=== PATIENT | male | born 1945 | race Caucasian/White ===

== ENCOUNTER 2021-03-27 05:13 | Day surgery (SDC) | payer OTHER ==
[2021-03-27] MEDS ORDERED: Midazolam 1 MG/ML 2 ML SDV IV ONE ×4 (05:14→06:43)
[2021-03-27] MEDS ORDERED: fentaNYL 100 MCG/2 ML SDV IV ONE ×3 (05:14→06:37)
[2021-03-27] MEDS ORDERED: Midazolam 1 MG/ML 2 ML SDV ONE (05:35)
[2021-03-27] MEDS ORDERED: fentaNYL 100 MCG/2 ML SDV ONE (05:36)
[2021-03-27] MEDS ORDERED: Dextrose 5%-0.45% NaCl 1,000 ML IV SCH (06:00)
[2021-03-27] MEDS ORDERED: Sodium Chloride 0.9% 10 ML Syringe FLUSH PRN (06:00)
[2021-03-27] MEDS ORDERED: Sodium Chloride 0.9% 10 ML Syringe FLUSH SCH (06:00)
--- NOTE | 2021-03-27 07:39 | OR ---
DATE: 03/27/2021 PROCEDURE: Total colonoscopy, NBI, and cold snare polypectomy. INSTRUMENT USED: [id number]-HQ190 Olympus video colonoscope. PREMEDICATIONS: Fentanyl 100 mcg intravenous, Versed 2.5 mg intravenous. Nasal O2 cannula. The procedure was done under pulse oximetry, BP recording, and pvc monitor. INDICATION: The patient with positive FIT. Colonoscopic examination is done for detection of any polypoid lesions and removal, endoscopic hemostasis therapy if needed. DESCRIPTION OF PROCEDURE: Initial rectal exam was unremarkable. Rigid anoscopy showed small internal hemorrhoids without bleeding from them. The colonoscope was passed with ease up to the ileocecal area. Photographs were taken of the normal-appearing cecum, identified by double bulged ileocecal folds. No bleeding was noted from any of the visualized areas at the commencement of the examination. The bowel preparation was found to be adequate, [place] scale 2 in right and transverse colon, 3 in left colon. Total score 7. No stricture. No vascular ectasia. No large isolated ulcerations seen. No evidence of diffuse inflammatory bowel disease in the form of friability, contact bleeding, or ulcerations. Probing the proximal sides of folds and flexures using adequate distention and clearing up the stool material, withdrawal of the scope was made. Second look was done at the right colon. In the hepatic flexure area, diminutive benign-appearing polyp was noted, NBI views were obtained, cold snare polypectomy was done, the tissue was retrieved and sent for histopathology. No bleeding was noted from any of the visualized areas at the completion of examination. IMPRESSION: 1. Internal hemorrhoids. 2. Diminutive hepatic flexure polyp. The patient tolerated the procedure well. [facility] /[id number]
--- NOTE | 2021-03-27 08:29 | LETTER ---
03/27/2021 [facility] [address] [place] [id number] RE: PHYLICIA DAILY : 1945 Dear Ms. Lynn: Mr. Phylicia Daily had colonoscopic examination done this morning, and he tolerated the procedure well. I herewith send a copy of the endoscopy note and photographs for your review. Thank you. Sincerely, [facility] /[id number]
== END 2021-03-27 09:11 | disposition home or self-care (01) ==
LOC: DL.ENDO 05:13
PROVIDERS: ATTEND Internal Medicine Gastroenterology
DX: K63.5 Polyp of colon (principal); K64.8 Other hemorrhoids; E66.09 Other obesity due to excess calories; I25.10 Atherosclerotic heart disease of native coronary artery without angina pectoris; I48.91 Unspecified atrial fibrillation; E11.9 Type 2 diabetes mellitus without complications; I10 Essential (primary) hypertension; E78.5 Hyperlipidemia, unspecified; K21.9 Gastro-esophageal reflux disease without esophagitis; K43.9 Ventral hernia without obstruction or gangrene; Z01.812 Encounter for preprocedural laboratory examination; Z20.822 Contact with and (suspected) exposure to COVID-19
CPT/HCPCS: 45385; 87635; J2250; J3010; J7042; U0002

== ENCOUNTER 2022-05-25 14:38 | Inpatient (IN) | payer MEDICARE, OTHER ==
[2022-05-25] MEDS ORDERED: Furosemide 100 MG/10 ML SDV IVPUSH ONE (15:06)
[2022-05-25 15:39] LABS: ANION GAP 13.5 mEq/L (7-13)
[2022-05-25] MEDS ORDERED: Levofloxacin/Dextrose 5%-Water 750 MG in Premix Bag 1 BAG IV ONE (16:48)
[2022-05-25 16:51] LABS: CORONAVIRUS COVID-19 NAA NEGATIVE (NEGATIVE); RESPIRATORY SYNCYTIAL VIR NAA NEGATIVE (NEGATIVE)
[2022-05-25] MEDS ORDERED: Bisacodyl 5 MG Tab PO PRN (19:12)
[2022-05-25] MEDS ORDERED: Magnesium Hydroxide 400 MG/5 ML Susp 30 ML Cup PO PRN (19:12)
[2022-05-25] MEDS ORDERED: Polyethylene Glycol 3350 Powder 17 GM Packet PO PRN (19:12)
[2022-05-25] MEDS ORDERED: HYDROmorphone 0.5 MG/0.5 ML Syringe IVPUSH PRN (19:12)
[2022-05-25] MEDS ORDERED: Acetaminophen/HYDROcodone 325-5 MG Tab PO PRN (19:12)
[2022-05-25] MEDS ORDERED: Acetaminophen 325 MG Tab PO PRN (19:12)
[2022-05-25] MEDS ORDERED: Diclofenac Sodium 1% Gel 100 GM Tube TOP PRN (19:19)
[2022-05-25] MEDS ORDERED: Metoprolol Tartrate 5 MG/5 ML SDV IVPUSH PRN (19:23)
[2022-05-25] MEDS ORDERED: hydrALAZINE 20 MG/ML SDV IVPUSH PRN (19:23)
[2022-05-25] MEDS ORDERED: guaiFENesin/Dextromethorphan 100-10 MG/5 ML Soln 5 ML Cup PO PRN (19:25)
[2022-05-25] MEDS ORDERED: Glucagon,Human Recombinant 1 MG Vial IM PRN (19:26)
[2022-05-25] MEDS ORDERED: 50% Dextrose in Water 50 ML Syringe IVPUSH PRN (19:26)
[2022-05-25] MEDS ORDERED: Hydrochlorothiazide 25 MG Tab PO SCH (21:00)
[2022-05-25] MEDS: Saccharomyces Boulardii (Probiotic) 250 MG Cap PO SCH (21:29)
[2022-05-25] MEDS: Hydrochlorothiazide 25 MG Tab PO SCH (21:29)
[2022-05-25] MEDS: Metoprolol Tartrate 50 MG Tab PO SCH (21:29)
[2022-05-25] MEDS: Lisinopril 20 MG Tab PO SCH (21:30)
[2022-05-25] MEDS: Melatonin 3 MG Tab PO PRN (21:30)
[2022-05-25] MEDS: Sodium Chloride 0.9% 10 ML Syringe FLUSH SCH (21:34)
[2022-05-25] MEDS ORDERED: HYDRALAZINE 10 MG PO SCH (23:15)
[2022-05-25] MEDS: Piperacillin/Tazobactam 3.375 GM in Sodium Chloride 0.9% 100 ML IV SCH (23:46)
[2022-05-25] MEDS: Morphine 2 MG/ML SYRINGE IVPUSH PRN (23:47)
[2022-05-25] MEDS: Sodium Chloride 0.9% 10 ML Syringe FLUSH PRN (23:47)
[2022-05-26] MEDS: HYDRALAZINE 10 MG PO SCH ×4 (00:16→23:09)
[2022-05-26] MEDS: Morphine 2 MG/ML SYRINGE IVPUSH PRN ×4 (05:22→16:30)
[2022-05-26] MEDS: Piperacillin/Tazobactam 3.375 GM in Sodium Chloride 0.9% 100 ML IV SCH ×3 (05:27→19:21)
[2022-05-26 06:47] LABS: ANION GAP 10.3 mEq/L (7-13)
[2022-05-26] MEDS: Insulin Lispro 100 Units/ML 3 ML Vial SUBCUT SCH ×2 (08:17→19:08)
[2022-05-26] MEDS: Sodium Chloride 0.9% 10 ML Syringe FLUSH SCH ×3 (08:18→21:15)
[2022-05-26] MEDS: glipiZIDE 5 MG Tab PO SCH (08:19)
[2022-05-26] MEDS: Hydrochlorothiazide 25 MG Tab PO SCH ×2 (08:19→21:15)
[2022-05-26] MEDS: Metoprolol Tartrate 50 MG Tab PO SCH ×2 (08:19→23:09)
[2022-05-26] MEDS: Rosuvastatin 10 MG Tab PO SCH (08:19)
[2022-05-26] MEDS: Saccharomyces Boulardii (Probiotic) 250 MG Cap PO SCH ×2 (08:19→21:14)
[2022-05-26] MEDS: Lisinopril 20 MG Tab PO SCH ×2 (08:20→21:14)
[2022-05-26] MEDS: Isosorbide Mononitrate 60 MG Tab.ER PO SCH (08:20)
[2022-05-26] MEDS: Aspirin 81 MG Tab.EC PO SCH (08:20)
[2022-05-26] MEDS: amLODIPine 5 MG Tab PO SCH (08:20)
[2022-05-26] MEDS: Cholecalciferol (Vitamin D3) 25 MCG Tab PO SCH (08:21)
[2022-05-26] MEDS ORDERED: Magnesium Sulfate/Water 2 GM in Premix Bag 1 BAG IV ONE (08:22)
[2022-05-26] MEDS: Ondansetron 4 MG/2 ML SDV IVPUSH PRN (08:58)
[2022-05-26] MEDS ORDERED: Hydrochlorothiazide 25 MG Tab PO SCH (09:00)
[2022-05-26] MEDS ORDERED: Potassium Chloride 10 MEQ Tab.ER PO ONE ×3 (11:00→19:30)
[2022-05-26] MEDS: Albuterol/Ipratropium 3.0-0.5 MG/3 ML Neb Soln NEB PRN (16:32)
[2022-05-26 17:02] LABS: O2 DELIVERY DEVICE NASAL CANNULA
[2022-05-26 17:03] LABS: ALLEN TEST POSITIVE
[2022-05-26 17:04] LABS: PCO2 ARTERIAL 84 mmHg (35-45); PO2 ARTERIAL 76 mmHg (70-100)
[2022-05-26 17:05] LABS: BASE EXCESS ARTERIAL 9 mmol/L ((-2)-(+3)); BICARBONATE,ARTERIAL 36.1 mmol/L (22-26); O2 SATURATION ARTERIAL 91 % (95-100)
[2022-05-26] MEDS ORDERED: Naloxone 2 MG/2 ML Syringe IVPUSH ONE (17:38)
[2022-05-26] MEDS ORDERED: Morphine 2 MG/ML SYRINGE IVPUSH PRN (18:53)
[2022-05-26 19:06] LABS: ANION GAP 15.8 mEq/L (7-13)
[2022-05-26] MEDS ORDERED: Temazepam 15 MG Cap PO ONE (21:00)
[2022-05-26] MEDS ORDERED: diphenhydrAMINE 50 MG/ML SDV IVPUSH ONE (21:00)
[2022-05-26] MEDS ORDERED: Sodium Chloride 0.9% 500 ML IV SCH (22:00)
[2022-05-26] MEDS ORDERED: Sodium Chloride 0.9% 1,000 ML IV SCH (22:00)
[2022-05-26] MEDS: Sodium Chloride 0.9% 10 ML Syringe FLUSH PRN (23:01)
[2022-05-27] MEDS: Piperacillin/Tazobactam 3.375 GM in Sodium Chloride 0.9% 100 ML IV SCH ×5 (00:33→23:28)
[2022-05-27] MEDS: HYDRALAZINE 10 MG PO SCH ×3 (05:38→21:41)
[2022-05-27 06:43] LABS: ANION GAP 9.2 mEq/L (7-13)
[2022-05-27] MEDS: Lisinopril 20 MG Tab PO SCH (08:15)
[2022-05-27] MEDS: Rosuvastatin 10 MG Tab PO SCH (08:16)
[2022-05-27] MEDS: glipiZIDE 5 MG Tab PO SCH (08:16)
[2022-05-27] MEDS: Aspirin 81 MG Tab.EC PO SCH (08:16)
[2022-05-27] MEDS: Saccharomyces Boulardii (Probiotic) 250 MG Cap PO SCH ×2 (08:16→20:35)
[2022-05-27] MEDS: Cholecalciferol (Vitamin D3) 25 MCG Tab PO SCH (08:16)
[2022-05-27] MEDS: Isosorbide Mononitrate 60 MG Tab.ER PO SCH (08:16)
[2022-05-27] MEDS: amLODIPine 5 MG Tab PO SCH (08:17)
[2022-05-27] MEDS: Metoprolol Tartrate 50 MG Tab PO SCH ×2 (08:17→20:35)
[2022-05-27] MEDS: Insulin Lispro 100 Units/ML 3 ML Vial SUBCUT SCH ×3 (08:18→17:34)
[2022-05-27] MEDS: Sodium Chloride 0.9% 10 ML Syringe FLUSH SCH ×2 (08:19→20:42)
[2022-05-27] MEDS ORDERED: methylPREDNISolone Sodium Succinate 125 MG/2 ML SDV IVPUSH ONE (08:21)
[2022-05-27] MEDS: Albuterol/Ipratropium 3.0-0.5 MG/3 ML Neb Soln NEB PRN (08:29)
[2022-05-27] MEDS: methylPREDNISolone Sodium Succinate 125 MG/2 ML SDV IVPUSH SCH ×3 (11:50→23:24)
[2022-05-27] MEDS ORDERED: diphenhydrAMINE 50 MG/ML SDV IVPUSH ONE (20:40)
[2022-05-27] MEDS: Albuterol/Ipratropium 3.0-0.5 MG/3 ML Neb Soln NEB SCH (20:43)
[2022-05-27] MEDS: Melatonin 3 MG Tab PO PRN (21:41)
[2022-05-28] MEDS: HYDRALAZINE 10 MG PO SCH ×3 (05:07→21:00)
[2022-05-28] MEDS: Sodium Chloride 0.9% 10 ML Syringe FLUSH PRN ×2 (05:14→20:44)
[2022-05-28] MEDS: methylPREDNISolone Sodium Succinate 125 MG/2 ML SDV IVPUSH SCH ×2 (05:14→12:09)
[2022-05-28] MEDS: Piperacillin/Tazobactam 3.375 GM in Sodium Chloride 0.9% 100 ML IV SCH ×3 (05:19→18:47)
[2022-05-28 06:35] LABS: ANION GAP 9.3 mEq/L (7-13)
[2022-05-28] MEDS: Albuterol/Ipratropium 3.0-0.5 MG/3 ML Neb Soln NEB SCH ×2 (08:43→18:47)
[2022-05-28] MEDS: Isosorbide Mononitrate 60 MG Tab.ER PO SCH (09:03)
[2022-05-28] MEDS: Rosuvastatin 10 MG Tab PO SCH (09:04)
[2022-05-28] MEDS: glipiZIDE 5 MG Tab PO SCH (09:04)
[2022-05-28] MEDS: Insulin Lispro 100 Units/ML 3 ML Vial SUBCUT SCH ×3 (09:05→17:20)
[2022-05-28] MEDS: Aspirin 81 MG Tab.EC PO SCH (09:05)
[2022-05-28] MEDS: Cholecalciferol (Vitamin D3) 25 MCG Tab PO SCH (09:05)
[2022-05-28] MEDS: Saccharomyces Boulardii (Probiotic) 250 MG Cap PO SCH ×2 (09:05→20:32)
[2022-05-28] MEDS: amLODIPine 5 MG Tab PO SCH (09:05)
[2022-05-28] MEDS: Phenazopyridine 95 MG Tab PO SCH ×2 (09:08→20:38)
[2022-05-28] MEDS: Sodium Chloride 0.9% 10 ML Syringe FLUSH SCH ×2 (09:15→20:34)
[2022-05-28] MEDS: Hydrochlorothiazide 25 MG Tab PO SCH (10:05)
[2022-05-28] MEDS: Metoprolol Tartrate 50 MG Tab PO SCH ×2 (12:07→20:32)
[2022-05-28] MEDS ORDERED: diphenhydrAMINE 50 MG/ML SDV IVPUSH ONE (19:39)
[2022-05-28] MEDS ORDERED: Sodium Chloride 0.9% 500 ML IV SCH (20:00)
[2022-05-28] MEDS: Finasteride 5 MG Tab PO SCH (20:34)
[2022-05-28] MEDS: Melatonin 3 MG Tab PO PRN (20:39)
[2022-05-29] MEDS: Piperacillin/Tazobactam 3.375 GM in Sodium Chloride 0.9% 100 ML IV SCH ×4 (00:16→17:48)
[2022-05-29] MEDS: Sodium Chloride 0.9% 10 ML Syringe FLUSH PRN (00:23)
[2022-05-29] MEDS: Ondansetron 4 MG/2 ML SDV IVPUSH PRN (00:23)
[2022-05-29] MEDS: HYDRALAZINE 10 MG PO SCH ×3 (05:01→21:32)
[2022-05-29 06:37] LABS: CHLORIDE,CL 103 mmol/L (98-107); SODIUM,NA 142 mmol/L (136-145)
[2022-05-29 06:39] LABS: ESTIMATED GFR 56 mL/min (>=60)
[2022-05-29] MEDS: Cholecalciferol (Vitamin D3) 25 MCG Tab PO SCH (09:12)
[2022-05-29] MEDS: Saccharomyces Boulardii (Probiotic) 250 MG Cap PO SCH ×2 (09:12→21:29)
[2022-05-29] MEDS: Rosuvastatin 10 MG Tab PO SCH (09:13)
[2022-05-29] MEDS: Phenazopyridine 95 MG Tab PO SCH ×2 (09:13→21:31)
[2022-05-29] MEDS ORDERED: Lactulose Soln 10 GM/15 ML 30 ML UD Cup PO ONE ×2 (09:13→10:00)
[2022-05-29] MEDS: Isosorbide Mononitrate 60 MG Tab.ER PO SCH (09:14)
[2022-05-29] MEDS: Aspirin 81 MG Tab.EC PO SCH (09:14)
[2022-05-29] MEDS: amLODIPine 5 MG Tab PO SCH (09:14)
[2022-05-29] MEDS: glipiZIDE 5 MG Tab PO SCH (09:14)
[2022-05-29] MEDS: Metoprolol Tartrate 50 MG Tab PO SCH ×2 (09:15→21:30)
[2022-05-29] MEDS: Tamsulosin 0.4 MG Cap.ER PO SCH (09:16)
[2022-05-29] MEDS: Insulin Lispro 100 Units/ML 3 ML Vial SUBCUT SCH ×3 (09:19→16:49)
[2022-05-29] MEDS: Hydrochlorothiazide 25 MG Tab PO SCH ×2 (09:22→21:29)
[2022-05-29] MEDS: Sodium Chloride 0.9% 10 ML Syringe FLUSH SCH ×2 (09:28→21:31)
[2022-05-29] MEDS: Albuterol/Ipratropium 3.0-0.5 MG/3 ML Neb Soln NEB SCH ×2 (09:47→18:37)
[2022-05-29] MEDS ORDERED: Warfarin 2 MG Tab PO ONE (17:00)
[2022-05-29] MEDS ORDERED: Ziprasidone Mesylate 20 MG Vial IM ONE (21:00)
[2022-05-29] MEDS ORDERED: Ziprasidone Mesylate 20 MG Vial IM PRN (21:00)
[2022-05-29] MEDS: Lisinopril 10 MG Tab PO SCH (21:30)
[2022-05-29] MEDS: Finasteride 5 MG Tab PO SCH (21:31)
[2022-05-29] MEDS: Melatonin 3 MG Tab PO PRN (21:31)
[2022-05-30] MEDS: Piperacillin/Tazobactam 3.375 GM in Sodium Chloride 0.9% 100 ML IV SCH ×5 (00:01→23:28)
[2022-05-30] MEDS: HYDRALAZINE 10 MG PO SCH ×3 (05:25→21:18)
[2022-05-30] MEDS: Sodium Chloride 0.9% 10 ML Syringe FLUSH PRN ×5 (05:55→23:27)
[2022-05-30] MEDS: Ondansetron 4 MG/2 ML SDV IVPUSH PRN (05:56)
[2022-05-30 07:07] LABS: ANION GAP 8.8 mEq/L (7-13); CHLORIDE,CL 104 mmol/L (98-107); ESTIMATED GFR 57 mL/min (>=60); SODIUM,NA 145 mmol/L (136-145)
[2022-05-30] MEDS: Insulin Lispro 100 Units/ML 3 ML Vial SUBCUT SCH ×3 (08:12→17:33)
[2022-05-30] MEDS: Saccharomyces Boulardii (Probiotic) 250 MG Cap PO SCH ×2 (08:59→21:15)
[2022-05-30] MEDS: Rosuvastatin 10 MG Tab PO SCH (08:59)
[2022-05-30] MEDS: Tamsulosin 0.4 MG Cap.ER PO SCH (08:59)
[2022-05-30] MEDS: Cholecalciferol (Vitamin D3) 25 MCG Tab PO SCH (08:59)
[2022-05-30] MEDS: Phenazopyridine 95 MG Tab PO SCH (09:00)
[2022-05-30] MEDS: Lisinopril 10 MG Tab PO SCH ×2 (09:01→21:15)
[2022-05-30] MEDS: Hydrochlorothiazide 25 MG Tab PO SCH ×2 (09:01→21:14)
[2022-05-30] MEDS: Aspirin 81 MG Tab.EC PO SCH (09:01)
[2022-05-30] MEDS: amLODIPine 5 MG Tab PO SCH (09:02)
[2022-05-30] MEDS: glipiZIDE 5 MG Tab PO SCH (09:02)
[2022-05-30] MEDS: Metoprolol Tartrate 50 MG Tab PO SCH ×2 (09:03→21:16)
[2022-05-30] MEDS: Isosorbide Mononitrate 60 MG Tab.ER PO SCH (09:04)
[2022-05-30] MEDS: Sodium Chloride 0.9% 10 ML Syringe FLUSH SCH ×2 (09:05→21:22)
[2022-05-30] MEDS: Finasteride 5 MG Tab PO SCH (21:15)
[2022-05-31] MEDS: Ondansetron 4 MG/2 ML SDV IVPUSH PRN (04:18)
[2022-05-31] MEDS: Sodium Chloride 0.9% 10 ML Syringe FLUSH PRN (04:18)
[2022-05-31] MEDS: HYDRALAZINE 10 MG PO SCH ×2 (05:49→14:49)
[2022-05-31] MEDS: Piperacillin/Tazobactam 3.375 GM in Sodium Chloride 0.9% 100 ML IV SCH ×2 (05:50→13:12)
[2022-05-31] MEDS: Insulin Lispro 100 Units/ML 3 ML Vial SUBCUT SCH (08:32)
[2022-05-31] MEDS: amLODIPine 5 MG Tab PO SCH (10:33)
[2022-05-31] MEDS: Saccharomyces Boulardii (Probiotic) 250 MG Cap PO SCH (10:34)
[2022-05-31] MEDS: Tamsulosin 0.4 MG Cap.ER PO SCH (10:34)
[2022-05-31] MEDS: Hydrochlorothiazide 25 MG Tab PO SCH (10:35)
[2022-05-31] MEDS: Cholecalciferol (Vitamin D3) 25 MCG Tab PO SCH (10:35)
[2022-05-31] MEDS: Rosuvastatin 10 MG Tab PO SCH (10:36)
[2022-05-31] MEDS: Isosorbide Mononitrate 60 MG Tab.ER PO SCH (10:36)
[2022-05-31] MEDS: Metoprolol Tartrate 50 MG Tab PO SCH (10:37)
[2022-05-31] MEDS: Lisinopril 10 MG Tab PO SCH (10:37)
[2022-05-31] MEDS: Aspirin 81 MG Tab.EC PO SCH (10:38)
[2022-05-31] MEDS: glipiZIDE 5 MG Tab PO SCH (10:38)
[2022-05-31] MEDS: Sodium Chloride 0.9% 10 ML Syringe FLUSH SCH (10:39)
== END 2022-05-31 16:15 | disposition home or self-care (01) | DRG 193 ==
LOC: DL.ED 14:38 → DL.MS 18:45 → UNDOADMIN 18:45
PROVIDERS: ADMIT Internal Medicine; ATTEND Internal Medicine
DX: J18.9 Pneumonia, unspecified organism (principal); R06.03 Acute respiratory distress; R79.1 Abnormal coagulation profile; J96.01 Acute respiratory failure with hypoxia; Z68.41 Body mass index [BMI] 40.0-44.9, adult; N17.9 Acute kidney failure, unspecified; I48.91 Unspecified atrial fibrillation; E11.9 Type 2 diabetes mellitus without complications; I25.10 Atherosclerotic heart disease of native coronary artery without angina pectoris; E11.65 Type 2 diabetes mellitus with hyperglycemia; E66.01 Morbid (severe) obesity due to excess calories; E66.9 Obesity, unspecified; Z66 Do not resuscitate; E87.6 Hypokalemia; Z20.822 Contact with and (suspected) exposure to COVID-19; E83.42 Hypomagnesemia; G47.00 Insomnia, unspecified; R31.0 Gross hematuria; E78.00 Pure hypercholesterolemia, unspecified; H91.90 Unspecified hearing loss, unspecified ear; K21.9 Gastro-esophageal reflux disease without esophagitis; M19.90 Unspecified osteoarthritis, unspecified site; I11.0 Hypertensive heart disease with heart failure; I48.0 Paroxysmal atrial fibrillation; E78.5 Hyperlipidemia, unspecified; E55.9 Vitamin D deficiency, unspecified; I50.9 Heart failure, unspecified; N28.9 Disorder of kidney and ureter, unspecified; Z79.1 Long term (current) use of non-steroidal anti-inflammatories (NSAID); Z79.82 Long term (current) use of aspirin; Z79.01 Long term (current) use of anticoagulants; Z79.899 Other long term (current) drug therapy; Z95.0 Presence of cardiac pacemaker; Z95.1 Presence of aortocoronary bypass graft
CPT/HCPCS: 0241U; 36415; 36600; 51702; 71045; 76770; 80048; 80053; 82803; 82947; 83605; 83735; 83880; 84439; 84443; 84484; 85025; 85379; 85610; 85730; 86140; 87070; 87205; 93005; 94640; 94660; 97165-GO; 99233; 99238; A9270-GY; J1200; J1815-GY; J1940; J1956; J2270; J2310; J2405; J2543; J2930; J3475; J3490; J7030; J7040; J7050; J7620-GY

== ENCOUNTER 2023-10-14 16:54 | Emergency (ER) | payer MEDICARE ==
[2023-10-14] MEDS: Sodium Chloride 0.9% 10 ML Syringe FLUSH PRN (17:54)
[2023-10-14 18:04] LABS: BASOPHILS PERCENT AUTO 0.3 % (0.0-1.0); EOSINOPHILS PERCENT AUTO 1.4 % (1.0-3.0); HEMOGLOBIN 16.7 g/dL (14.0-18.0); MEAN CORPUSCULAR HEMOGLOBIN 28.6 pg (27.0-34.0); MEAN CORPUSCULAR HGB CONC 33.4 g/dL (33.0-35.0); MEAN CORPUSCULAR VOLUME 85.6 fL (80-100); MONOCYTES PERCENT AUTO 12.3 % (2-8); PLATELET COUNT,PLT 188 10^3/uL (150-450); RED BLOOD CELL COUNT 5.84 10^6/uL (4.6-6.2); WHITE BLOOD CELL COUNT,WBC 5.9 10^3/uL (5.0-10.0)
[2023-10-14] MEDS: methylPREDNISolone Sodium Succinate 125 MG/2 ML SDV IVPUSH ONE (18:04)
[2023-10-14] MEDS: Albuterol/Ipratropium 3.0-0.5 MG/3 ML Neb Soln NEB ONE (18:05)
[2023-10-14 18:29] LABS: A/G RATIO 0.8; ALANINE AMINOTRANSFERASE,ALT 30 U/L (16-63); ALBUMIN 3.6 g/dL (3.4-5.0); ALKALINE PHOSPHATASE 88 U/L (46-116); ANION GAP 14.5 mEq/L (7-13); ASPARTATE AMNIOTRANSFERASE,AST 21 U/L (15-37); B-TYPE NATRIURETIC PEPTIDE,BNP 684 pg/ml (0-100); BILIRUBIN TOTAL 0.8 mg/dL (0.2-1.0); BLOOD UREA NITROGEN,BUN 27 mg/dL (7-18); BUN/CREATININE RATIO 23.5 (No establ ref range); C-REACTIVE PROTEIN 1.88 ng/dL (<=0.50); CALCIUM 9.2 mg/dL (8.5-10.1); CARBON DIOXIDE,CO2 29 mmol/L (21-32); CHLORIDE,CL 97 mmol/L (98-107); CREATININE 1.15 mg/dL (0.70-1.30); EST CRCL DRUG DOSING (CG) 53.79 mL/min; ESTIMATED GFR 66 mL/min (>=60); GLUCOSE RANDOM 157 mg/dL (70-99); POTASSIUM,K 3.5 mmol/L (3.5-5.1); PROTEIN TOTAL,TP 7.9 g/dL (6.4-8.2); SODIUM,NA 137 mmol/L (136-145)
[2023-10-14 18:32] LABS: INR 3.9 (0.9-1.2); PROTHROMBIN TIME 36.8 SEC (9.0-12.0); PTT,PARTIAL THROMBOPLSTIN TIME 39.9 SEC (22.0-34.0)
[2023-10-14 18:34] LABS: LACTIC ACID 1.1 mmol/L (0.4-2.0)
[2023-10-14] MEDS: Furosemide 40 MG/4 ML VIAL IV ONE (18:44)
[2023-10-14] MEDS: Albuterol 6.7 GM Inhaler INH ONE (18:51)
[2023-10-14] MEDS: Take Home: Benzonatate 100 MG, 6 Cap Pack PO ONE (18:57)
[2023-10-14] MEDS: Azithromycin 250 MG Tab PO ONE (19:06)
== END 2023-10-14 19:22 | disposition home or self-care (01) ==
LOC: DL.ED 16:54
DX: I11.0 Hypertensive heart disease with heart failure (principal); I50.9 Heart failure, unspecified; J45.901 Unspecified asthma with (acute) exacerbation; I25.10 Atherosclerotic heart disease of native coronary artery without angina pectoris; I48.91 Unspecified atrial fibrillation; E78.00 Pure hypercholesterolemia, unspecified; E11.9 Type 2 diabetes mellitus without complications; E66.9 Obesity, unspecified; Z95.0 Presence of cardiac pacemaker; Z95.1 Presence of aortocoronary bypass graft; Z87.891 Personal history of nicotine dependence; Z79.01 Long term (current) use of anticoagulants; Z79.899 Other long term (current) drug therapy; Z79.82 Long term (current) use of aspirin; Z68.38 Body mass index [BMI] 38.0-38.9, adult; Z79.84 Long term (current) use of oral hypoglycemic drugs
CPT/HCPCS: 36415; 71045; 80053; 83605; 83880; 84145; 85025; 85610; 85730; 86140; 87804; 96374; 96375; 99284-25; A9270-GY; J1940; J2919; J3490; J7620-GY; U0002

== ENCOUNTER 2024-08-15 10:09 | Emergency (ER) | payer OTHER ==
[2024-08-15] MEDS: Oxymetazoline 0.05% Nasal Spray 30 ML Bottle NAS ONE (10:41)
[2024-08-15 10:45] LABS: BASOPHILS PERCENT AUTO 0.2 % (0.0-1.0); EOSINOPHILS PERCENT AUTO 1.6 % (1.0-3.0); HEMATOCRIT 51.7 % (40.0-54.0); HEMOGLOBIN 17.5 g/dL (14.0-18.0); LYMPHOCYTES PERCENT AUTO 12.3 % (20.5-50.1); MEAN CORPUSCULAR HEMOGLOBIN 29.4 pg (27.0-34.0); MEAN CORPUSCULAR HGB CONC 33.8 g/dL (33.0-35.0); MEAN CORPUSCULAR VOLUME 86.7 fL (80-100); MONOCYTES PERCENT AUTO 6.6 % (2-8); NEUTROPHILS PERCENT AUTO 79.3 % (42.2-75.2); PLATELET COUNT,PLT 181 10^3/uL (150-450); RED BLOOD CELL COUNT 5.96 10^6/uL (4.6-6.2); WHITE BLOOD CELL COUNT,WBC 5.1 10^3/uL (5.0-10.0)
[2024-08-15 10:59] LABS: INR 2.6 (0.9-1.2); PROTHROMBIN TIME 25.2 SEC (9.0-12.0)
[2024-08-15 11:04] LABS: A/G RATIO 0.9; ALANINE AMINOTRANSFERASE,ALT 37 U/L (16-63); ALBUMIN 3.4 g/dL (3.4-5.0); ALKALINE PHOSPHATASE 78 U/L (46-116); ANION GAP 9.6 mEq/L (7-13); ASPARTATE AMNIOTRANSFERASE,AST 15 U/L (15-37); BILIRUBIN TOTAL 0.7 mg/dL (0.2-1.0); BLOOD UREA NITROGEN,BUN 30 mg/dL (7-18); BUN/CREATININE RATIO 23.1 (No establ ref range); CALCIUM 8.8 mg/dL (8.5-10.1); CARBON DIOXIDE,CO2 28 mmol/L (21-32); CHLORIDE,CL 100 mmol/L (98-107); GLUCOSE RANDOM 221 mg/dL (70-99); POTASSIUM,K 3.6 mmol/L (3.5-5.1); PROTEIN TOTAL,TP 7.3 g/dL (6.4-8.2); SODIUM,NA 134 mmol/L (136-145)
[2024-08-15 11:05] LABS: ESTIMATED GFR 57 mL/min (>=60)
[2024-08-15] MEDS: Tranexamic Acid 1,000 MG/10 ML Vial TOP ONE (11:47)
== END 2024-08-15 13:05 | disposition home or self-care (01) ==
LOC: DL.ED 10:09
DX: R04.0 Epistaxis (principal); I48.91 Unspecified atrial fibrillation; E78.00 Pure hypercholesterolemia, unspecified; I10 Essential (primary) hypertension; I25.10 Atherosclerotic heart disease of native coronary artery without angina pectoris; E11.9 Type 2 diabetes mellitus without complications; Z95.0 Presence of cardiac pacemaker; Z95.1 Presence of aortocoronary bypass graft; Z79.82 Long term (current) use of aspirin; Z79.01 Long term (current) use of anticoagulants; Z79.899 Other long term (current) drug therapy
CPT/HCPCS: 30901; 36415; 80053; 85025; 85610; 99283; A9270

== ENCOUNTER 2024-08-28 12:16 | Emergency (ER) | payer OTHER ==
[2024-08-28] MEDS: Ketorolac 30 MG/ML SDV IM ONE (12:40)
== END 2024-08-28 13:18 | disposition home or self-care (01) ==
LOC: DL.ED 12:16
DX: S83.421A Sprain of lateral collateral ligament of right knee, initial encounter (principal); I10 Essential (primary) hypertension; I48.91 Unspecified atrial fibrillation; I25.10 Atherosclerotic heart disease of native coronary artery without angina pectoris; E11.9 Type 2 diabetes mellitus without complications; E66.9 Obesity, unspecified; E78.00 Pure hypercholesterolemia, unspecified; M19.90 Unspecified osteoarthritis, unspecified site; Z79.82 Long term (current) use of aspirin; Z79.899 Other long term (current) drug therapy; Z79.01 Long term (current) use of anticoagulants; Z95.0 Presence of cardiac pacemaker; Z68.41 Body mass index [BMI] 40.0-44.9, adult; X58.XXXA Exposure to other specified factors, initial encounter
CPT/HCPCS: 96372; 99283; J1885; 99284